=== PATIENT | female | born 1960 | race American Indian/Alaskan Native ===

== ENCOUNTER 2021-01-01 11:00 | Day surgery (SDC) | payer MEDICARE, OTHER, MEDICAID ==
[~2021-01-01] VITALS: Ht 182.9 cm; Wt 68.0 kg
[~2021-01-01 11:00] MED LIST: ALLEGRA ALLERG180 MG PO; AMOXICILLIN500 MG PO; ARTHRITIS PAIN100 GM; AUGMENTIN 875-1 EACH PO; BUPROPION HCL150 M2 PO; CELEBREX200 MG PO; CHOLESTYRAMINE P4 GM PO; CIPRO500 MG PO; CYMBALTA30 MG PO; DICYCLOMINE HCL10 MG PO; DYMISTA NASAL S23 GM NAS; ESOMEPRAZOLE MA40 M1 PO; FLONASE2 SPRAY; GABAPENTIN100 MG PO; HYDROCODON-ACE1 EAC8 PO; NEXIUM40 MG PO; NORCO 5-325 TA1 EACH PO; OXYBUTYNIN CHLOR5 MG PO; PLAQUENIL200 MG PO; PREDNISONE20 MG PO; PRILOSEC OTC20 MG PO; PROPRANOLOL HCL20 MG PO; ROPINIROLE HCL0.5 MG PO; SOMA350 MG PO; SUDAFED 12-HOU120 MG PO; SUMATRIPTAN SU100 MG PO; SYNTHROID175 MCG PO; SYNTHROID200 MCG PO; TIZANIDINE HCL4 M1 PO; TIZANIDINE HCL4 MG PO; TOPAMAX100 MG PO; TRAZODONE HCL50 MG PO; TYLENOL325 MG PO; VISTARIL25 MG PO
--- NOTE | 2021-01-01 13:53 | NUR ---
1334: PT ARRIVES TO UNIT FROM PACU VIA STRETCHER. ALERT AND ORIENTED. VSS, RESP EVEN AND UNLABORED. PT DENIES PAIN AND NAUSEA AT THIS TIME. CMS WNL, SCDS CYRO CUFF AND COMPRESSION SOCKS IN PLACE. ICE WATER AND APPLE SAUCE PROVIDED. PT COMFORTABLE WITHOUT NEEDS OR REQUESTS AT THIS TIME. ATTENTIVE AT THE BEDSIDE. CALL LIGHT WITHIN REACH.
[2021-01-01] MEDS ORDERED: HYDROCODON-ACE1 EA11 PO (14:12)
--- NOTE | 2021-01-01 14:49 | NUR ---
01/01/21 1449 Annalisa Nascimento 1410 PT ARRIVED IN PACU SLEEPY WITH NO C/O'S. 1415 SITTING UP IN BED GRABBING AT BLANKETS. RE ORIENTED PT "SURGERY WAS FINISHED." 1420 CRYO CUFF PLACED ON L SHOULDER. C/O NECK AND LOW BACK PAIN. STATES "MY SHOULDER IS NUMB." 1424 TORADOL 30MG GIVEN IVP PER DR ORDERS. 1430 C/O EXTREME HEADACHE AFTER TORADOL. ASKING NURSE TO ADD IT TO HER ALLERGIES. 1436 DILAUDID 0.4MG GIVEN IVP FOR 7/10 HEADACHE. 1445 RESTING. REU.
--- NOTE | 2021-01-01 15:15 | NUR ---
PATIENT BACK TO ROOM. REPORTS 0/10 PAIN WITH LEFT SHOULDER SURGERY. DRESSING C/D/I. PATIENT COMPLAINTS OF MIGRAINE, AND GENERALIZED CHRONIC PAIN. ADMINISTER MEDICATIONS PER AUG. ICE APPLIED. SLING IN PLACE. PATIENT NOW EATING APPLESAUCE AND DRINKING COFFEE. PATIENT APPEARS TO BE SMILING, TALKING WITH COUSIN IN ROOM. NO OTHER NEEDS AT THIS TIME.
--- NOTE | 2021-01-01 16:30 | NUR ---
PATIENT UP TO BATHROOM, TOLERATED ACTIVITY WELL. VOIDED 300 ML OF CLEAR YELLOW URINE. PATIENT BACK TO ROOM. VSS. DRESSING TO LEFT SHOULDER C/D/I, DISCUSSED S/S OF INFECTION AND CARE AT HOME. PATIENT VERBALIZED WILL REMOVE IN 3 DAYS AND THEN REDRESS NEEDED. PATIENT VERBALIZED UNDERSTANDING. PATIENT REPORTED CONCERNED THAT DR. RENNER PRESCRIBED 7.5/325 MG NORCO FOR PAIN WHEN SHE TAKES 10/325 MG NORCO CURRENTLY. CALL TO WHO VERBALIZED PATIENT COULD CONTINUE TO TAKE THE 10/325 AT HOME, AND THEN IF SHE NEEDED A REFILL TO CALL THE CLINIC LATER THIS WEEK. PATIENT VERBALIZED UNDERSTANDING, AND AGREED TO THE PLAN FOR PAIN CONTROL. PROVIDED DISCHARGE INSTRUCTION, ANSWERED ALL QUESTIONS AND CONCERNS. PROVIDED WHEELCHAIR RIDE TO FRONT, PATIENT THEN TRANSFERED INTO CAR WELL.
--- NOTE | 2021-01-03 07:02 | OR ---
[facility] [address] [place], [place] [address] Signed DATE OF OPERATION: 01/01/2021 SURGEON: Regi Sewell MD PREOPERATIVE DIAGNOSIS: Rotator cuff tear, left shoulder. POSTOPERATIVE DIAGNOSIS: Rotator cuff tear, left shoulder. PROCEDURE PERFORMED: Left shoulder arthroscopy with rotator cuff repair. BIOLOGY DEPARTMENT CHAIR: LUIS Soto. Perla was present and critical for all portions of procedure. ESTIMATED BLOOD LOSS: Minimal. ANESTHESIA: General. IMPLANTS: 4.75 mm SwiveLock with FiberTape. BRIEF HISTORY: Jordi is a 60-year-old female with pain in her shoulder and failed nonoperative treatment. MRI showed a small rotator cuff tear. Risks and benefits of operative treatment were discussed with her and she elected to proceed. DESCRIPTION OF PROCEDURE: Once consent was obtained, she was taken to the operating room. After adequate anesthesia, she was placed in the beach chair position. All downside pressure points were well padded. The shoulder was prepped and draped in a standard sterile fashion and injected with 15 mL 0.25% Marcaine with epinephrine as was the subacromial space. Standard posterior portal was made and the scope was introduced in the shoulder. ARTHROSCOPIC FINDINGS: There was mild fraying to the labrum throughout. The biceps and biceps anchor were Electronically Signed By: REGI SEWELL MD 01/03/21 0702 PATIENT NAME: JORDI TURNER [facility] OPERATIVE REPORT DATE OF : 58 REPORT #: [id number] PHYSICIAN: REGI SEWELL MD PCP: ANEUDY WYNNE REPORT IS CONFIDENTIAL AND NOT TO BE RELEASED WITHOUT AUTHORIZATION [facility] [address] [place], [place] [address] Signed intact. The glenohumeral surfaces were intact. The subscapularis was noted to be good. The rotator cuff showed a 1 cm tear about 1.5 cm posterior to the biceps. This did appear to be full-thickness and a needle was placed through it. The scope was then withdrawn, placed in the subacromial space and was found to have extensive bursitis thickening and fairly friable tissue. There was a full-thickness 1 cm tear. DESCRIPTION OF OPERATION: Diagnostic arthroscopy was undertaken as noted above. The scope was then withdrawn, placed in the subacromial space and the bursa and associated scar tissue was all removed using a combination of the shaver and Mitek VAPR. The tear was found fairly easily and was debrided. There was a good bleeding bony bed. The FiberTape was then placed in an inverted mattress configuration. This was placed through the 4.75 and 4.75 was deployed into the acromion at the corner. This was fully seated and the suture was appropriately tensioned. The anchor was screwed into position and the sutures were cut. The tear was stably repaired. Shoulder was moved and found to be good. There was excellent bleeding. The scope was then withdrawn, portals were closed with 3-0 nylon and dressed with Allevyn dressing. She tolerated the procedure well. All sponge, needle, and instrument counts were correct. Regi Sewell MD BA/MODL /[id number] Copies: ~ Electronically Signed By: REGI SEWELL MD 01/03/21 0702 PATIENT NAME: JORDI TURNER OPERATIVE REPORT DATE OF : 58 REPORT #: [id number] PHYSICIAN: REGI SEWELL MD PCP: ANEUDY WYNNE REPORT IS CONFIDENTIAL AND NOT TO BE RELEASED WITHOUT AUTHORIZATION
== END 2021-01-01 16:30 | disposition home or self-care (01) ==
LOC: DS 11:00
PROVIDERS: ATTEND Specialist
PROC: 0LQ24ZZ Repair Left Shoulder Tendon, Percutaneous Endoscopic Approach (ICD-10-PCS; principal; 2021-01-01 13:45)
DX: M75.112 Incomplete rotator cuff tear or rupture of left shoulder, not specified as traumatic (principal); M75.52 Bursitis of left shoulder; G89.18 Other acute postprocedural pain; K21.9 Gastro-esophageal reflux disease without esophagitis; G43.909 Migraine, unspecified, not intractable, without status migrainosus; K58.9 Irritable bowel syndrome, unspecified; Z88.6 Allergy status to analgesic agent; Z88.2 Allergy status to sulfonamides; Z88.5 Allergy status to narcotic agent; Z98.1 Arthrodesis status; Z96.651 Presence of right artificial knee joint; Z87.891 Personal history of nicotine dependence
CPT/HCPCS: 00450; 64415; 76942; A9270; C1713; J0690; J1100; J1170; J1885; J2250; J2405; J7121

== ENCOUNTER 2023-07-18 12:45 | Emergency (ER) | payer MEDICARE, MEDICAID, OTHER ==
[~2023-07-18] VITALS: Ht 182.9 cm; Wt 70.3 kg
[~2023-07-18 12:45] MED LIST changes: +ARMOUR THYROID120 MG PO; +ARTHRITIS PAIN100 GM TOP; +GABAPENTIN600 MG PO; +HYDROCODON-ACE1 EA11 PO; +OXYCODONE HCL5 MG PO; +SENNA LAX8.6 MG PO; +TYLENOL EXTRA500 MG PO; +XARELTO10 MG PO
--- OUTSIDE RECORDS SUMMARY | 2023-07-18 12:46 | XMS ---
PreManage Notification: JORDI TURNER Security Rod Pointer Events No recent Security Events currently on file CRITERIA MET - [facility] There are no care providers on record at this time. Castro has no Care Guidelines for this patient. EJovan VISIT COUNT (12 MO.) 1 BERNADETTE Hackett TOTAL 1 NOTE: Visits indicate total known visits. ED/C VISIT TRACKING (12 MO.) 07/18/2023 12:45 BERNADETTE Escobar [place] TYPE: Emergency COMPLAINT: - LACERATION INPATIENT VISIT TRACKING (12 MO.) No inpatient visits to display in this time frame [email or web address]
[2023-07-18 14:44] VITALS: BP 128/84
== END 2023-07-18 14:46 | disposition home or self-care (01) ==
LOC: ED 12:45
DX: S61.412A Laceration without foreign body of left hand, initial encounter (principal); F43.20 Adjustment disorder, unspecified; F43.10 Post-traumatic stress disorder, unspecified; M19.90 Unspecified osteoarthritis, unspecified site; K21.9 Gastro-esophageal reflux disease without esophagitis; E03.9 Hypothyroidism, unspecified; W26.0XXA Contact with knife, initial encounter; Z87.891 Personal history of nicotine dependence; Z88.6 Allergy status to analgesic agent; Z88.5 Allergy status to narcotic agent; Z88.2 Allergy status to sulfonamides; Z79.899 Other long term (current) drug therapy; Z79.890 Hormone replacement therapy; Z79.51 Long term (current) use of inhaled steroids
CPT/HCPCS: 12004; 99283